=== PATIENT | male | born 1950 | race Caucasian/White ===

== ENCOUNTER 2018-09-23 09:41 | Emergency (ER) | payer MEDICARE, OTHER ==
[2018-09-23] MEDS ORDERED: IPRATROPIUM/ALBUTEROL 0.5-2.5 MG/3 ML AMPUL NEB ONE ×2 (09:45→09:46)
[2018-09-23] MEDS ORDERED: METHYLPREDNISOLONE INJ 125 MG/2 ML SDV IV ONE (09:46)
[2018-09-23] MEDS ORDERED: MORPHINE SULFATE 10 MG/ML INJ IV ONE ×2 (09:46→10:02)
[2018-09-23] MEDS ORDERED: LORAZEPAM INJ 2 MG/1 ML VIAL IV ONE (09:47)
--- NOTE | 2018-09-23 09:47 | ER Document Report ---
ED Respiratory Problem - General Stated Complaint: DIFFICULTY BREATHING Time Seen by Provider: 09/23/18 09:46 Notes: 68-year-old male presents via EMS for respiratory distress. Patient with active DNR. Has a DO NOT RESUSCITATE order on his chest. States that he has metastatic prostate cancer. Does not want any further treatment. Wants to be kept comfortable. Would not allow EMS to do anything wanted to come to the hospital first. Patient is answering questions appropriately. Confirms his DNR with a verbal request to DO NOT RESUSCITATE as well. Patient is consenting to breathing treatment and blood draws. Patient does seem confused and in severe respiratory distress at this time. - HPI Patient complains to provider of: COPD, Short of breath Duration: Worse/persistent Quality of pain: No pain Severity: Severe Pain Level: 0 Context: Hx COPD, Smoker Short of Breath: Severe - Related Data Allergies/Adverse Reactions: codeine Allergy (Verified 09/23/18 09:55) Past Medical History - General Information source: Patient - Social History Smoking Status: Current Every Day Smoker Cigarette use (# per day): Yes Frequency of alcohol use: None Drug Abuse: None Lives with: Alone Family History: None - Medical History Notes: Prostate cancer, metastatic prostate cancer, COPD Review of Systems - Review of Systems -: Yes ROS unobtainable due to patient's medical condition - Hypoxia, respiratory distress, altered mental status Physical Exam - Vital signs Vitals: Resp 21 H 09/23/18 09:43 Interpretation: Tachycardic, Hypoxic Notes: Oxygen saturations of 72%, heart rate of 125 - General General appearance: Anxious In distress: Severe - HEENT Head: Normocephalic, Atraumatic Eyes: Normal Pupils: PERRL - Respiratory Respiratory status: Cyanosis, Pursed lip breathing, Tachypnea, Tripod position Chest status: Nontender Breath sounds: Decreased air movement, Rales, Rhonchi, Wheezing Chest palpation: Normal - Cardiovascular Rhythm: Tachycardia Heart sounds: Normal auscultation Murmur: No - Abdominal Inspection: Normal Distension: No distension Bowel sounds: Normal Tenderness: Nontender Organomegaly: No organomegaly - Back Back: Normal, Nontender - Extremities General upper extremity: Normal inspection, Nontender, Normal ROM. No: Normal color - Pale, Normal temperature - Cold General lower extremity: Normal inspection, Nontender, Normal ROM, Normal weight bearing. No: Normal color - Pale, Normal temperature - Cold, Shaniqua's sign - Neurological Neuro grossly intact: Yes Cognition: Confused Orientation: AAOx4 Orla Coma Scale Eye Opening: Spontaneous Alexis Coma Scale Verbal: Confused Orla Coma Scale Motor: Obeys Commands Orla Coma Scale Total: 14 Speech: Normal Motor strength normal: LUE, RUE, LLE, RLE Sensory: Normal - Psychological Associated symptoms: Agitated, Anxious - Skin Skin Temperature: Cold Skin Moisture: Dry Skin Color: Pale Course - Re-evaluation Re-evalutation: 09/23/18 10:27 Based on patient's wishes and the fact that he was severely hypoxic and with imminent demise we administered comfort measures at this time according to the standard of care. 1 mg of Ativan was given for his anxiety. An initial dose of 2 mg of morphine was provided. Patient relaxed to the point where he wanted to lie down. Patient was made comfortable. Oxygen was on the patient. Patient 's eyes closed and he breathes his last breath and piece. Time of was 10: 20 AM. 09/23/18 12:06 Laboratory 09/23/18 10:00 Carbonic Acid 1.16 HCO3/H2CO3 Ratio 8:1 ABG pH 7.03 L* ABG pCO2 38.6 ABG pO2 60.1 L ABG HCO3 9.9 L ABG Total CO2 11.1 L ABG O2 Saturation 78.1 L ABG Base Excess -20.3 FiO2 12L Chest X-Ray 09/23/18 09:46 IMPRESSION: Alveolar and interstitial edema with trace pleural effusions - Vital Signs Vital signs: Temp Pulse Resp BP Pulse Ox 96.5 F L 25 H 119/52 L 09/23/18 09:44 09/23/18 10:00 09/23/18 09:47 - Laboratory Laboratory results interpreted by me: 09/23/18 10:00 ABG pH 7.03 L* ABG pO2 60.1 L ABG HCO3 9.9 L ABG Total CO2 11.1 L ABG O2 Saturation 78.1 L Critical Care Note - Critical Care Note Total time excluding time spent on procedures (mins): 75 Comments: Respiratory failure, respiratory arrest, hypoxic bradycardia, consultation with family members at bedside, end-of-life care, coordination of end-of-life care. Discharge - Discharge Clinical Impression: Acute respiratory failure with hypoxia Disposition:
[2018-09-23] MEDS ORDERED: ONDANSETRON HCL INJ/PF 4 MG/2 ML SDV IV ONE (10:02)
[2018-09-23] MEDS ORDERED: FUROSEMIDE INJ/PF 20 MG/2 ML SDV IV ONE (10:03)
--- NOTE | 2018-09-23 10:20 | RADIOLOGY REPORT (SQ) ---
EXAM DESCRIPTION: CHEST SINGLE VIEW COMPLETED DATE/TIME: 09/23/2018 10:00 am REASON FOR STUDY: sob COMPARISON: None. EXAM PARAMETERS: NUMBER OF VIEWS: One view. TECHNIQUE: Single frontal radiographic view of the chest acquired. RADIATION DOSE: NA LIMITATIONS: None. FINDINGS: LUNGS AND PLEURA: Diffuse bilateral alveolar pulmonary edema is present. Air few Sachi lines at both lung bases with trace fluid in the right and left lateral costophrenic s ulci. No pneumothorax MEDIASTINUM AND HILAR STRUCTURES: No masses. Contour normal. HEART AND VASCULAR STRUCTURES: Heart normal in size. Normal vasculature. BONES: No acute findings. HARDWARE: None in the chest. OTHER: No other significant finding. IMPRESSION: Alveolar and interstitial edema with trace pleural effusions TECHNICAL DOCUMENTATION: JOB ID: [id number] [employer]- All Rights Reserved Reading location - IP/workstation name: [facility] [place]
[2018-09-23 11:01] LABS: ARTERIAL BLOOD BASE EXCESS -20.3 mmol/L; ARTERIAL BLOOD H2CO3 1.16 mmol/L (1.05-1.35); ARTERIAL BLOOD HCO3 9.9 mmol/L (20-24); ARTERIAL BLOOD O2 SATURATION 78.1 % (94-98); ARTERIAL BLOOD PCO2 38.6 mmHg (35-45); ARTERIAL BLOOD PO2 60.1 mmHg (80-100); ARTERIAL BLOOD TOTAL CO2 11.1 mmol/L (23-27)
[2018-09-23 11:04] LABS: ARTERIAL BLOOD FIO2 12L
[2018-09-23 11:06] LABS: ARTERIAL BLOOD PH 7.03 (7.35-7.45)
[2018-09-23 17:00] VITALS: BP 0/0
== END 2018-09-23 13:12 | disposition expired ==
LOC: ER 09:41
DX: J96.01 Acute respiratory failure with hypoxia (principal); F41.9 Anxiety disorder, unspecified; C79.82 Secondary malignant neoplasm of genital organs; J44.9 Chronic obstructive pulmonary disease, unspecified; F17.210 Nicotine dependence, cigarettes, uncomplicated; Z66 Do not resuscitate; Z88.5 Allergy status to narcotic agent
CPT/HCPCS: 94640; 99291; 99292; 96374; 96375; 82803; 71045; J1940; J2930; J2270; J2060; A9270; J7620